=== PATIENT | female | born 1995 | race American Indian/Alaskan Native ===

== ENCOUNTER 2018-07-12 19:16 | Emergency (ER) | payer BC ==
[2018-07-12 19:27] VITALS: BP 125/84; PULSE 80; RESP 14; TEMP 98.5; O2SAT 99
[2018-07-12] MEDS ORDERED: Lidocaine Hydrochloride 5 ML INJ ONE (19:43)
[2018-07-12] MEDS ORDERED: Lidocaine 2% MPF (5 ml) Inj ONE (20:03)
--- NOTE | 2018-07-12 20:26 | C.PDOC ---
History Of Present Illness Patient is a 23 year old female who presents to the ED c/o boils under her left armpit. Patient states that she was seen in [facility] 2 days ago and was discharged with antibiotics, without an I&D being performed but pt has not yet filled medications. She denies any fever. Time Seen by Provider: 07/12/18 19:35 Chief Complaint (Nursing): Abnormal Skin Integrity History Per: Patient History/Exam Limitations: no limitations Current Symptoms Are (Timing): Still Present Recent travel outside of the [place]: No Additional History Per: Patient Past Medical History Reviewed: Historical Data, Nursing Documentation, Vital Signs Vital Signs: Last Vital Signs Temp 98.5 F 07/12/18 19:24 Pulse 80 07/12/18 19:24 Resp 14 07/12/18 19:24 BP 125/84 07/12/18 19:24 Pulse Ox 99 07/12/18 19:24 - Medical History PMH: No Chronic Diseases Surgical History: No Surg Hx Family History: States: No Known Family Hx - Social History Hx Alcohol Use: No Hx Substance Use: No - Immunization History Hx Tetanus Toxoid Vaccination: Yes Hx Influenza Vaccination: No Hx Pneumococcal Vaccination: No Review Of Systems Constitutional: Negative for: Fever Skin: Positive for: Other (abscess under left armpit) Physical Exam - Physical Exam Appears: Non-toxic, No Acute Distress Skin: Normal Color, Warm, Dry, Other (multiple small boils to left axilla with larger one at 2x3cm area of induration, erythema, tenderness, with small purulent center ) Eye(s): bilateral: Normal Inspection Neurological/Psych: Oriented x3, Normal Speech ED Course And Treatment O2 Sat by Pulse Oximetry: 99 (on RA) Pulse Ox Interpretation: Normal Progress Note: Plan: Cleocin 300mg PO. Motrin 800mg PO. Wound check in 2 days - Incision & Drainage Of Abscess Anesthesia: Lidocaine 2% Procedure: Incised W/Scalpel Blade#: (15 gauge ), Drained Pus (moderate purulent drianage ), Irrigated Cavity W/Saline, Probed To Break Up Loculations, Packed W/Gauze (patient tolerated well ) Disposition Counseled Patient/Family Regarding: Diagnosis, Need For Followup, Rx Given - Disposition Referrals: [facility] [Outside] Disposition: HOME/ ROUTINE Disposition Time: 20:19 Condition: STABLE Additional Instructions: Please return in 2 days for wound check Take medicatgions as directed Return to ER if worse Prescriptions: Clindamycin [Cleocin] 300 mg PO QID #28 cap Ibuprofen [Motrin] 600 mg PO Q6H #24 tab Instructions: Boil (DC) Forms: [facility] (Uruguayan) - Clinical Impression Clinical Impression: Abscess of axilla, left - PA / APPLICATION SECURITY CONSULTANT / Resident Statement MD/DO has examined the patient and agrees with the treatment plan. - Scribe Statement The provider has reviewed the documentation as recorded by the Remy Harris All medical record entries made by the Remy were at my direction and personally dictated by me. I have reviewed the chart and agree that the record accurately reflects my personal performance of the history, physical exam, medical decision making, and the department course for this patient. I have also personally directed, reviewed, and agree with the discharge instructions and disposition.
== END 2018-07-12 20:44 | disposition home or self-care (01) ==
LOC: C.ER 19:16
DX: L02.412 Cutaneous abscess of left axilla (principal)

== ENCOUNTER 2018-07-16 16:05 | Emergency (ER) | payer BC ==
[2018-07-16 16:22] VITALS: BP 125/74; PULSE 71; TEMP 98.5; O2SAT 100
--- NOTE | 2018-07-16 16:43 | C.PDOC ---
History Of Present Illness 23 y/o female presents to the ED for a wound check to the left axilla. Patient is s/p I&D on 07/12/18. She reports compliance with antibiotics. Patient denies any worsening pain or redness near the site. No fevers. No new symptoms. Time Seen by Provider: 07/16/18 16:33 Chief Complaint (Nursing): Wound Check History Per: Patient History/Exam Limitations: no limitations Onset/Duration Of Symptoms: Days Ago (4) Current Symptoms Are (Timing): Better Location Of Injury: Left: Arm Past Medical History Reviewed: Historical Data, Nursing Documentation, Vital Signs Vital Signs: Last Vital Signs Temp 98.5 F 07/16/18 16:20 Pulse 71 07/16/18 16:20 Resp 18 07/16/18 16:20 BP 125/74 07/16/18 16:20 Pulse Ox 100 07/16/18 16:20 Surgical History: No Surg Hx Family History: States: Unknown Family Hx - Social History Hx Tobacco Use: No Hx Alcohol Use: No Hx Substance Use: No - Immunization History Hx Tetanus Toxoid Vaccination: Yes Hx Influenza Vaccination: No Hx Pneumococcal Vaccination: No Review Of Systems Except As Marked, All Systems Reviewed And Found Negative. Constitutional: Negative for: Fever, Chills Respiratory: Negative for: Shortness of Breath Skin: Positive for: Other (healing I&D wound) Neurological: Negative for: Weakness, Numbness Physical Exam - Physical Exam Appears: Well, Non-toxic, No Acute Distress Skin: Warm, Dry, Other (Packing in place to left axilla, with scant purulent discharge, +local deep induration to the axilla, no nodes, no focal fluctuance, no erythema) Head: Atraumatic, Normacephalic Eye(s): bilateral: Normal Inspection Neck: Normal ROM Chest: Symmetrical Respiratory: No Accessory Muscle Use, Other (NARD) Extremity: Bilateral: Normal Color And Temperature, Normal ROM Pulses: Left Radial: Normal, Right Radial: Normal Neurological/Psych: Oriented x3, Normal Speech Gait: Steady ED Course And Treatment O2 Sat by Pulse Oximetry: 100 (RA) Pulse Ox Interpretation: Normal Medical Decision Making Medical Decision Making: Plan: Patient is pending surgical eval on 07/18. Advised patient to continue antibiotics and wound care. Disposition Counseled Patient/Family Regarding: Diagnosis, Need For Followup - Disposition Referrals: [facility] [Other] [facility] [Outside] [facility] [Outside] Disposition: HOME/ ROUTINE Disposition Time: 16:43 Condition: IMPROVED Instructions: Abscess Incision and Drainage (DC) Forms: [facility] (Togolese), Work Excuse - Clinical Impression Clinical Impression: Abscess packing removal - Scribe Statement The provider has reviewed the documentation as recorded by the Remy Acosta Provider Attestation: All medical record entries made by the Remy were at my direction and personally dictated by me. I have reviewed the chart and agree that the record accurately reflects my personal performance of the history, physical exam, medical decision making, and the department course for this patient. I have also personally directed, reviewed, and agree with the discharge instructions and disposition.
[2018-07-16 17:03] VITALS: RESP 20
== END 2018-07-16 17:02 | disposition home or self-care (01) ==
LOC: C.ER 16:05
DX: Z48.00 Encounter for change or removal of nonsurgical wound dressing (principal)